=== PATIENT | male | born 1960 | race Caucasian/White ===

== ENCOUNTER → 2017-06-19 | Day surgery (SDC) | payer OTHER ==
[~2017-06-19] VITALS: Ht 172.7 cm; Wt 70.0 kg
[~2017-06-19] MED LIST: 0.9% Sodium Chloride 1,000 ML IV SCH; KEN1O TOP; Sodium Chloride LOK Flush 10 mL Syringe IV PRN; fentaNYL-PF 50 mCg/mL 2 mL Inj IVPUSH PRN
[2017-06-19 09:34] VITALS: BP 138/79; PULSE 63; RESP 14; O2SAT 97
[2017-06-19 10:34] VITALS: BP 153/90; PULSE 67; RESP 16; O2SAT 96
[2017-06-19 10:46] VITALS: BP 142/93; PULSE 60; RESP 17; O2SAT 97
--- NOTE | 2017-06-19 11:12 | ENDO ---
[address] [address] ENDOSCOPY PROCEDURE PATIENT: TEENA CARRASCO : 1960 MR#: [id number] ADMIT: 06/19/2017 JOB ID: [id number] DATE: 06/19/2017 PRIMARY PROVIDER: Mirta Castellanos PA-C PROCEDURE: Colonoscopy. INDICATIONS: A 57-year-old male with a personal history of colon polyps, returning for surveillance. EQUIPMENT: [id number]. SEDATION: 8 mg Versed, 125 mcg fentanyl. COMPLICATIONS: None identified. BOWEL PREPARATION: Fair, adequate exam. PROCEDURE INFORMATION: After the risks and benefits were explained, written and verbal informed consent was obtained. The patient was brought into the endoscopy suite and placed into the left lateral decubitus position. Sedation was achieved as above. A digital rectal examination accomplished. Mild internal hemorrhoids identified. No other significant pathology. The scope was introduced into the rectum and advanced to the cecum as identified by the appendiceal orifice and ileocecal valve. The scope was slowly withdrawn to carefully examine the mucosa for any defects or lesions. Retroflexed views were accomplished in the rectum. The colon was decompressed, the scope removed from the patient who tolerated the procedure well. FINDINGS: Some mild diverticulosis was seen in the left colon. Retroflexed views confirmed the presence of hemorrhoids and a couple of the columns appeared to be mildly inflamed. No other significant pathology appreciated throughout. No significant polyps or mass lesions noted. ENDOSCOPIC DIAGNOSES: 1. Hemorrhoids. 2. Diverticulosis. RECOMMENDATIONS: Considering personal history of colon polyps, repeat colonoscopy in five years.
== END | disposition home or self-care (01) ==
LOC: END 01:16
PROVIDERS: ATTEND Internal Medicine Gastroenterology
DX: Z12.11 Encounter for screening for malignant neoplasm of colon (principal); Z86.010 Personal history of colon polyps; Z83.71 Family history of colonic polyps; K57.30 Diverticulosis of large intestine without perforation or abscess without bleeding; K64.9 Unspecified hemorrhoids; Z72.0 Tobacco use
CPT/HCPCS: G0105; G0500; J2250; J3010; J7030